=== PATIENT | male | born 1935 | race Caucasian/White ===

== ENCOUNTER 2019-07-07 12:20 | Inpatient (IN) ==
[2019-07-07] MEDS ORDERED: Mag Hydrox/Al Hydrox/Simeth 30 ML UDC PO PRN (12:47)
[2019-07-07] MEDS ORDERED: Melatonin 3 MG TABLET PO PRN (12:48)
[2019-07-07] MEDS ORDERED: Ondansetron ODT 4 MG TAB.RAPDIS SL PRN (12:49)
[2019-07-08] MEDS: *HR* Enoxaparin 30 MG/0.3 ML SYRINGE SQ SCH (05:16)
[2019-07-08 06:18] LABS: Basophils # 0.1 K/mcL (0.0-0.2); Basophils % 0.7 %; Eosinophils # 0.5 K/mcL (0.0-0.6); Hematocrit 34.9 % (37.5-50.1); Hemoglobin 11.3 g/dL (12.9-16.9); Immature Granulocytes % 0.3 % (0-4); Lymphocytes # 1.1 K/mcL (0.6-4.6); Lymphocytes % 14.9 %; Mean Corpuscular HGB Conc 32.4 g/dL (31.6-35.5); Mean Corpuscular Hemoglobin 29.1 pg (28.0-33.3); Mean Corpuscular Volume 89.9 fL (83.0-100.0); Mean Platelet Volume 11.7 fL (9.4-12.4); Monocytes # 0.6 K/mcL (0.0-1.3); Monocytes % 8.9 %; Neutrophils # 4.8 K/mcL (1.6-8.9); Platelet Count 172 K/mcL (140-400); Red Blood Count 3.88 M/mcL (4.19-5.50); Red Cell Distribution Width 13.8 % (11.5-14.5); Segmented Neutrophils % 68.2 %; White Blood Count 7.1 K/mcL (4.3-11.1)
[2019-07-08 06:38] LABS: Albumin 3.6 g/dL (3.5-5.7); Albumin/Globulin Ratio 1.3 (1.1-2.2); Bilirubin,Total 0.7 mg/dL (0.3-1.0); Calcium 9.1 mg/dL (8.6-10.3); Globulin 2.7 g/dL (2.4-3.5); Potassium 3.6 mEq/L (3.5-5.1); Total Protein 6.3 g/dL (6.4-8.9)
[2019-07-08] MEDS: Metoprolol XL (24 HR) Succ 50 MG TAB.ER.24H PO SCH (09:17)
[2019-07-08] MEDS: Lisinopril 20 MG TABLET PO SCH (09:20)
[2019-07-08] MEDS: amLODIPine 5 MG TABLET PO SCH (09:20)
[2019-07-09] MEDS: *HR* Enoxaparin 30 MG/0.3 ML SYRINGE SQ SCH (05:29)
[2019-07-09] MEDS: amLODIPine 5 MG TABLET PO SCH (09:22)
[2019-07-09] MEDS: Metoprolol XL (24 HR) Succ 50 MG TAB.ER.24H PO SCH (09:22)
[2019-07-09] MEDS: Lisinopril 20 MG TABLET PO SCH (09:22)
[2019-07-10] MEDS: *HR* Enoxaparin 30 MG/0.3 ML SYRINGE SQ SCH (06:18)
[2019-07-10] MEDS: Metoprolol XL (24 HR) Succ 50 MG TAB.ER.24H PO SCH (08:18)
[2019-07-10] MEDS: Lisinopril 20 MG TABLET PO SCH (08:18)
[2019-07-10] MEDS: amLODIPine 5 MG TABLET PO SCH (08:18)
[2019-07-11] MEDS: *HR* Enoxaparin 30 MG/0.3 ML SYRINGE SQ SCH (06:06)
[2019-07-11] MEDS: amLODIPine 5 MG TABLET PO SCH (08:06)
[2019-07-11] MEDS: Metoprolol XL (24 HR) Succ 50 MG TAB.ER.24H PO SCH (08:06)
[2019-07-11] MEDS: Lisinopril 20 MG TABLET PO SCH (08:06)
[2019-07-11] MEDS: Acetaminophen 325 MG TABLET PO PRN (10:51)
[2019-07-11 11:19] LABS: Basophils # 0.1 K/mcL (0.0-0.2); Basophils % 1.3 %; Eosinophils # 0.5 K/mcL (0.0-0.6); Eosinophils % 6.3 %; Hemoglobin 11.4 g/dL (12.9-16.9); Immature Granulocytes % 0.3 % (0-4); Lymphocytes # 1.4 K/mcL (0.6-4.6); Lymphocytes % 19.5 %; Mean Corpuscular HGB Conc 31.7 g/dL (31.6-35.5); Mean Corpuscular Hemoglobin 29.1 pg (28.0-33.3); Mean Corpuscular Volume 91.8 fL (83.0-100.0); Mean Platelet Volume 11.1 fL (9.4-12.4); Monocytes # 0.6 K/mcL (0.0-1.3); Monocytes % 8.1 %; Neutrophils # 4.7 K/mcL (1.6-8.9); Platelet Count 220 K/mcL (140-400); Red Blood Count 3.92 M/mcL (4.19-5.50); Red Cell Distribution Width 14.1 % (11.5-14.5); Segmented Neutrophils % 64.5 %; White Blood Count 7.2 K/mcL (4.3-11.1)
[2019-07-11 11:38] LABS: Calcium 9.6 mg/dL (8.6-10.3); Potassium 4.2 mEq/L (3.5-5.1)
[2019-07-11] MEDS ORDERED: 0.9 % Sodium Chloride 1,000 ML IVC SCH (13:00)
[2019-07-12 05:06] LABS: Calcium 9.1 mg/dL (8.6-10.3); Potassium 4.5 mEq/L (3.5-5.1)
[2019-07-12] MEDS: *HR* Enoxaparin 30 MG/0.3 ML SYRINGE SQ SCH (05:26)
[2019-07-12] MEDS: Metoprolol XL (24 HR) Succ 50 MG TAB.ER.24H PO SCH (08:34)
[2019-07-12] MEDS: Lisinopril 20 MG TABLET PO SCH (08:34)
[2019-07-12] MEDS: amLODIPine 5 MG TABLET PO SCH (08:34)
[2019-07-12] MEDS: Acetaminophen 325 MG TABLET PO PRN (08:40)
[2019-07-13] MEDS: *HR* Enoxaparin 30 MG/0.3 ML SYRINGE SQ SCH (05:57)
[2019-07-13] MEDS: amLODIPine 5 MG TABLET PO SCH (08:34)
[2019-07-13] MEDS: Lisinopril 20 MG TABLET PO SCH (08:34)
[2019-07-13] MEDS: Metoprolol XL (24 HR) Succ 50 MG TAB.ER.24H PO SCH (08:34)
[2019-07-13] MEDS: Acetaminophen 325 MG TABLET PO PRN ×2 (09:57→21:23)
[2019-07-14] MEDS: *HR* Enoxaparin 30 MG/0.3 ML SYRINGE SQ SCH (05:48)
[2019-07-14] MEDS: Metoprolol XL (24 HR) Succ 50 MG TAB.ER.24H PO SCH (08:26)
[2019-07-14] MEDS: amLODIPine 5 MG TABLET PO SCH (08:26)
[2019-07-14] MEDS: Lisinopril 20 MG TABLET PO SCH (08:26)
[2019-07-15] MEDS: *HR* Enoxaparin 30 MG/0.3 ML SYRINGE SQ SCH (05:14)
[2019-07-15] MEDS: Lisinopril 20 MG TABLET PO SCH (08:53)
[2019-07-15] MEDS: Metoprolol XL (24 HR) Succ 50 MG TAB.ER.24H PO SCH (08:53)
[2019-07-15] MEDS: amLODIPine 5 MG TABLET PO SCH (08:53)
[2019-07-16] MEDS: *HR* Enoxaparin 30 MG/0.3 ML SYRINGE SQ SCH (05:15)
[2019-07-16] MEDS: amLODIPine 5 MG TABLET PO SCH (09:28)
[2019-07-16] MEDS: Metoprolol XL (24 HR) Succ 50 MG TAB.ER.24H PO SCH (09:28)
[2019-07-16] MEDS: Lisinopril 20 MG TABLET PO SCH (09:28)
[2019-07-16] MEDS: Acetaminophen 325 MG TABLET PO PRN (23:59)
[2019-07-17] MEDS: *HR* Enoxaparin 30 MG/0.3 ML SYRINGE SQ SCH (05:22)
[2019-07-17] MEDS: Metoprolol XL (24 HR) Succ 50 MG TAB.ER.24H PO SCH (08:26)
[2019-07-17] MEDS: Lisinopril 20 MG TABLET PO SCH (08:26)
[2019-07-17] MEDS: amLODIPine 5 MG TABLET PO SCH (08:26)
[2019-07-18] MEDS: *HR* Enoxaparin 30 MG/0.3 ML SYRINGE SQ SCH (06:40)
[2019-07-18] MEDS: Metoprolol XL (24 HR) Succ 50 MG TAB.ER.24H PO SCH (09:29)
[2019-07-18] MEDS: Lisinopril 20 MG TABLET PO SCH (09:29)
[2019-07-18] MEDS: amLODIPine 5 MG TABLET PO SCH (09:29)
[2019-07-19] MEDS: *HR* Enoxaparin 30 MG/0.3 ML SYRINGE SQ SCH (05:25)
[2019-07-19 05:41] LABS: Basophils # 0.1 K/mcL (0.0-0.2); Basophils % 0.9 %; Eosinophils # 0.4 K/mcL (0.0-0.6); Eosinophils % 6.2 %; Hemoglobin 10.7 g/dL (12.9-16.9); Immature Granulocytes % 0.3 % (0-4); Lymphocytes # 1.7 K/mcL (0.6-4.6); Lymphocytes % 24.3 %; Mean Corpuscular HGB Conc 31.5 g/dL (31.6-35.5); Mean Corpuscular Hemoglobin 29.2 pg (28.0-33.3); Mean Corpuscular Volume 92.9 fL (83.0-100.0); Mean Platelet Volume 11.2 fL (9.4-12.4); Monocytes # 0.5 K/mcL (0.0-1.3); Monocytes % 7.3 %; Neutrophils # 4.3 K/mcL (1.6-8.9); Platelet Count 224 K/mcL (140-400); Red Blood Count 3.66 M/mcL (4.19-5.50); Red Cell Distribution Width 13.8 % (11.5-14.5)
[2019-07-19 05:59] LABS: Albumin 3.7 g/dL (3.5-5.7); Albumin/Globulin Ratio 1.3 (1.1-2.2); Bilirubin,Total 0.4 mg/dL (0.3-1.0); Calcium 9.5 mg/dL (8.6-10.3); Globulin 2.8 g/dL (2.4-3.5); Potassium 5.1 mEq/L (3.5-5.1); Total Protein 6.5 g/dL (6.4-8.9)
[2019-07-19] MEDS: Lisinopril 20 MG TABLET PO SCH (08:22)
[2019-07-19] MEDS: amLODIPine 5 MG TABLET PO SCH (08:22)
[2019-07-19] MEDS: Metoprolol XL (24 HR) Succ 50 MG TAB.ER.24H PO SCH (08:22)
[2019-07-19] MEDS: Acetaminophen 325 MG TABLET PO PRN (13:59)
[2019-07-20] MEDS: *HR* Enoxaparin 30 MG/0.3 ML SYRINGE SQ SCH (05:52)
[2019-07-20] MEDS: Lisinopril 20 MG TABLET PO SCH (10:03)
[2019-07-20] MEDS: Metoprolol XL (24 HR) Succ 50 MG TAB.ER.24H PO SCH (10:04)
[2019-07-20] MEDS: amLODIPine 5 MG TABLET PO SCH (10:04)
[2019-07-21] MEDS: *HR* Enoxaparin 30 MG/0.3 ML SYRINGE SQ SCH (05:28)
[2019-07-21] MEDS: Lisinopril 20 MG TABLET PO SCH (10:26)
[2019-07-21] MEDS: Metoprolol XL (24 HR) Succ 50 MG TAB.ER.24H PO SCH (10:44)
[2019-07-21] MEDS: amLODIPine 5 MG TABLET PO SCH (10:44)
[2019-07-22 05:47] LABS: Hematocrit 34.4 % (37.5-50.1); Mean Corpuscular Hemoglobin 29.5 pg (28.0-33.3); Mean Corpuscular Volume 92.2 fL (83.0-100.0); Mean Platelet Volume 11.6 fL (9.4-12.4); Platelet Count 246 K/mcL (140-400); Red Blood Count 3.73 M/mcL (4.19-5.50); Red Cell Distribution Width 13.6 % (11.5-14.5); White Blood Count 7.1 K/mcL (4.3-11.1)
[2019-07-22] MEDS: *HR* Enoxaparin 30 MG/0.3 ML SYRINGE SQ SCH (05:47)
[2019-07-22 06:03] LABS: Albumin 3.9 g/dL (3.5-5.7); Albumin/Globulin Ratio 1.4 (1.1-2.2); Bilirubin,Total 0.5 mg/dL (0.3-1.0); Calcium 9.8 mg/dL (8.6-10.3); Globulin 2.8 g/dL (2.4-3.5); Potassium 4.8 mEq/L (3.5-5.1); Total Protein 6.7 g/dL (6.4-8.9)
[2019-07-22] MEDS: amLODIPine 5 MG TABLET PO SCH (08:51)
[2019-07-22] MEDS: Metoprolol XL (24 HR) Succ 50 MG TAB.ER.24H PO SCH (08:52)
[2019-07-22] MEDS: Lisinopril 20 MG TABLET PO SCH (08:52)
[2019-07-22] MEDS: 0.9 % Sodium Chloride 1,000 ML IVC SCH ×2 (10:15→20:30)
[2019-07-23] MEDS: *HR* Enoxaparin 30 MG/0.3 ML SYRINGE SQ SCH (06:00)
[2019-07-23] MEDS: 0.9 % Sodium Chloride 1,000 ML IVC SCH ×2 (07:10→16:38)
[2019-07-23] MEDS: amLODIPine 5 MG TABLET PO SCH ×2 (08:56→13:24)
[2019-07-23] MEDS: Lisinopril 20 MG TABLET PO SCH (08:56)
[2019-07-23] MEDS: Metoprolol XL (24 HR) Succ 50 MG TAB.ER.24H PO SCH (09:31)
[2019-07-23 11:41] LABS: Calcium 9.2 mg/dL (8.6-10.3)
[2019-07-24] MEDS: 0.9 % Sodium Chloride 1,000 ML IVC SCH ×3 (02:48→22:50)
[2019-07-24] MEDS: *HR* Enoxaparin 30 MG/0.3 ML SYRINGE SQ SCH (05:58)
[2019-07-24] MEDS: Metoprolol XL (24 HR) Succ 50 MG TAB.ER.24H PO SCH (09:47)
[2019-07-24] MEDS: Lisinopril 20 MG TABLET PO SCH (09:47)
[2019-07-24] MEDS: amLODIPine 5 MG TABLET PO SCH (09:47)
[2019-07-25] MEDS: *HR* Enoxaparin 30 MG/0.3 ML SYRINGE SQ SCH (05:09)
[2019-07-25] MEDS: 0.9 % Sodium Chloride 1,000 ML IVC SCH ×2 (09:19→19:39)
[2019-07-25] MEDS: Metoprolol XL (24 HR) Succ 50 MG TAB.ER.24H PO SCH (09:20)
[2019-07-25] MEDS: amLODIPine 5 MG TABLET PO SCH (09:20)
[2019-07-25] MEDS: Lisinopril 20 MG TABLET PO SCH (09:20)
[2019-07-25] MEDS: Acetaminophen 325 MG TABLET PO PRN (13:08)
[2019-07-26] MEDS: *HR* Enoxaparin 30 MG/0.3 ML SYRINGE SQ SCH (05:50)
[2019-07-26] MEDS: 0.9 % Sodium Chloride 1,000 ML IVC SCH (06:05)
[2019-07-26 06:58] VITALS: BP 156/66
[2019-07-26] MEDS: Metoprolol XL (24 HR) Succ 50 MG TAB.ER.24H PO SCH (08:36)
[2019-07-26] MEDS ORDERED: amLODIPine 5 MG TABLET PO SCH (09:00)
== END 2019-07-26 14:51 | disposition home or self-care (01) | DRG 57 ==
LOC: INPGRE 12:20